=== PATIENT | female | born 1980 | race Caucasian/White ===

== ENCOUNTER 2017-06-23 08:33 | Emergency (ER) | payer OTHER ==
[~2017-06-23] VITALS: Ht 162.6 cm; Wt 98.5 kg
[~2017-06-23 08:33] MED LIST: ACET325T33 PO; ADV25050 INH; FER325 PO; LEVA15HF6 INH; MONT10TA21 PO; NITR-58 PO; OSLT75C PO; PRED10TA PO
[2017-06-23 08:35] VITALS: Ht 162.6 cm; Wt 98.5 kg
[2017-06-23] MEDS ORDERED: ACETAMINOPHEN 325 MG TAB PO ONE (09:30)
[2017-06-23] MEDS ORDERED: IBUPROFEN 600 MG TAB PO ONE (09:30)
--- NOTE | 2017-06-23 09:30 | ERD ---
ER Documentation Chief Complaint Date/Time DATE: 06/23/17 TIME: 09:29 Chief Complaint SORETHROAT AND EAR PAIN SINCE WAKING, NO SOB, SPEAKING FULL SENTENCES HPI 37-year-old female presents with 1 day history of sore throat, bilateral ear pain, cough. Patient states she has had a dry cough, and pressure-like pain in her ears, and soreness in her throat. Cough has been dry, she denies chest pain , shortness of breath, hemoptysis. ROS All systems reviewed and are negative except as per history of present illness. Medications Home Meds Active Scripts Lidocaine (Lidocaine Viscous) 100 Ml Soln, 10 ML MM TID, #100 ML Prov:MIRIAN BOWDEN PA-C 06/23/17 Ibuprofen* (Motrin*) 600 Mg Tab, 600 MG PO Q6, #30 TAB Prov:MIRIAN BOWDEN PA-C 06/23/17 Acetaminophen* (Tylenol*) 325 Mg Tablet, 2 TAB PO Q6 Y for PAIN AND OR ELEVATED TEMP, #20 TAB Prov:KHALIDA VO PA-C 04/25/16 Acetaminophen* (Tylenol*) 325 Mg Tablet, 2 TAB PO Q8 Y for PAIN AND OR ELEVATED TEMP, #20 TAB Prov:KHALIDA VO PA-C 03/01/16 Nitrofurantoin Monohyd Macrocr* (Macrobid*) 100 Mg Capsr, 100 MG PO BID for 7 Days, CAP Prov:KHALIDA VO PA-C 03/01/16 Oseltamivir Phosphate* (Tamiflu*) 75 Mg Capsule, 75 MG PO BID for 5 Days, CAP Prov:STEFFANIE ROMAN NP 01/30/16 Prednisone* (Prednisone*) 10 Mg Tab, 10 MG PO DAILY, #20 TAB 1. take 40mg by mouth daily for 3 days 2. then 20mg by mouth daily for 3 days 3. then 10mg by mouth daily for 2 days Prov:MAURA APONTE 12/03/15 Levalbuterol* (Xopenex* HFA) 15 Gm Inha, 2 PUFFS INH Q4H Y for WHEEZING AND SOB for 3 Days, INHALER Prov:REGMAURA WEAVER 12/03/15 Ferrous Sulfate* (Ferrous Sulfate*) 325 Mg Tabec, 325 MG PO DAILY for 30 Days, TAB Prov:REGIDOR,MAURA 12/03/15 Montelukast Sodium* (Singulair*) 10 Mg Tab, 10 MG PO HS for 30 Days, TAB Prov:STEVERMAURA 12/03/15 Salmeterol Xinaf/Fluticasone* (Advair*) 1 Inh Inha, 1 INH INH BID for 30 Days Prov:MAURA APONTE 12/03/15 Allergies Allergies: Coded Allergies: No Known Allergy (Unverified , 11/30/15) PMhx/Soc History of Surgery: Yes (c section x4, gall bladder removal 1999) Anesthesia Reaction: No Hx Neurological Disorder: No Hx Respiratory Disorders: Yes (asthma) Hx Cardiac Disorders: No Hx Psychiatric Problems: Yes (anxiety ) Hx Miscellaneous Medical Probl: No Hx Alcohol Use: No Hx Substance Use: No Hx Tobacco Use: No Smoking Status: Never smoker Physical Exam Vitals Vital Signs Date Time Temp Pulse Resp B/P Pulse Ox O2 Delivery O2 Flow Rate FiO2 06/23/17 08:35 98.8 98 20 116/79 97 Physical Exam General: Well-developed, well-nourished. The patient appears in no acute distress. HEENT: Head is normocephalic, atraumatic. No scleral icterus. Neck: Supple. Nontender. Left tonsil has exudate, oropharynx is erythematous, uvula is midline. TMs are nonerythematous, there is some serous otitis media. No mastoid tenderness. Lungs: Clear to auscultation. Normal air movement. Heart: Regular rate and rhythm. S1 and S2 are normal. No murmurs, gallops, or rubs. Abdomen: Nondistended. Extremities: No clubbing or cyanosis. Moving extremities x 4. No weakness. Neurologic: Alert and oriented 3. No focal deficits. Normal speech and gait. Skin: Normal turgor. No rash or lesions. Results 24 hrs Current Medications Medications (Trade) Dose Ordered Sig/Serena Route PRN Reason Start Time Stop Time Status Last Admin Dose Admin Acetaminophen (Tylenol Tab) 650 mg ONCE ONCE PO 06/23/17 09:30 06/23/17 09:31 DC 06/23/17 09:11 Ibuprofen (Motrin) 600 mg ONCE ONCE PO 06/23/17 09:30 06/23/17 09:31 DC 06/23/17 09:11 Procedures/MDM Rapid strep: NEG MDM: The patient is a 37-year-old female who comes in with an acute upper respiratory infection, presumed viral. She has had a cough, sore throat, exudate , rapid strep is negative.The patient has a differential diagnosis of a viral upper respiratory infection, bacterial upper respiratory infection, bronchitis, pneumonia, pharyngitis, laryngitis, epiglottitis, croup, pneumonia. Patient has a normal pulmonary examination, clear breath sounds, normal pulse oximetry, with no corrective measures needed at this time. Fluids, rest, antipyretics were encouraged. Departure Diagnosis: Primary Impression: Sore throat Condition: Good MIRIAN BOWDEN PA-C Jun 23, 2017 09:30
[2017-06-23] MEDS ORDERED: IBUP-1542 PO (10:06)
[2017-06-23] MEDS ORDERED: LIDO20SO19 MM (10:06)
[2017-06-23 10:29] VITALS: BP 112/70; PULSE 78; RESP 20; TEMP 98.4
== END 2017-06-23 10:27 | disposition home or self-care (01) ==
LOC: FTE 08:33
DX: J02.9 Acute pharyngitis, unspecified (principal); J45.909 Unspecified asthma, uncomplicated
CPT/HCPCS: 87880; Z7502; Z7610; 99283

== ENCOUNTER 2017-10-02 09:04 | Emergency (ER) | payer OTHER ==
[~2017-10-02] VITALS: Ht 165.1 cm; Wt 96.9 kg
[~2017-10-02 09:04] MED LIST changes: +IBUP-1542 PO; +LIDO20SO19 MM
[2017-10-02 09:06] VITALS: Ht 165.1 cm; Wt 96.9 kg
[2017-10-02] MEDS ORDERED: IBUPROFEN 800 MG TAB PO ONE (10:30)
--- NOTE | 2017-10-02 11:04 | RADRPT ---
PROCEDURE: CT facial bones CLINICAL INDICATION: left jaw pain TECHNIQUE: A CT of the facial bones was performed on a multidetector CT scanner utilizing thin axi al images. Sagittal and coronal reconstructions were provided. The CTDIvol is 30 mGy and the DLP i s 562mGy-cm. One or more of the following dose reduction techniques were used: Automated exposure c ontrol, Adjustment of the mA and/or kV according to patient size, and/or use of iterative reconstruc tion technique. COMPARISON: None available. FINDINGS: Asymmetric widening of the left temporomandibular joint when compared to the right. Mild flattening of the right mandibular condyle. The nasal bones, zygomatic arches and pterygoid plates are intact. The mandible is intact. The orbits are intact. The globes are grossly intact. The paranasal sinus es and mastoid air cells are clear. Streak artifact from dental hardware partially obscures evaluati on of the oral cavity. Visualized parotid and submandibular glands are grossly unremarkable. IMPRESSION: Asymmetric widening of the left temporomandibular joint when compared to the right. An underlying le ft temporal mandibular joint effusion or synovitis is possible. If warranted, MRI can be obtained fo r further evaluation. Mild flattening of the right mandibular condyle. No acute facial bone fracture. RPTAT: AA .Glen Estrada MD, Date Time Electronically viewed and signed by .Glen Estrada MD, on 10/02/2017 11:04 .T/
[2017-10-02] MEDS ORDERED: NAPR-260 PO (11:23)
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
== END 2017-10-02 11:54 | disposition home or self-care (01) ==
LOC: FTE 09:04
DX: M26.602 Left temporomandibular joint disorder, unspecified (principal); J45.909 Unspecified asthma, uncomplicated
CPT/HCPCS: 70486; Z7502; Z7610